=== PATIENT | female | born 1960 | race Caucasian/White ===

== ENCOUNTER → 2023-10-17 06:53 | Outpatient (REF) | payer BC, SELFPAY | LOC: MRI 06:53 | PROVIDERS: ATTENDING PHYSICIAN Orthopaedic Surgery; FAMILY PHYSICIAN Nurse Practitioner Family | DX: G89.29 Other chronic pain (principal); M54.41 Lumbago with sciatica, right side | CPT/HCPCS: 72148 ==

== ENCOUNTER → 2023-12-08 07:11 | Outpatient (REF) | payer BC, SELFPAY | LOC: RCS 07:11 | PROVIDERS: ATTENDING PHYSICIAN Internal Medicine Cardiovascular Disease; FAMILY PHYSICIAN Nurse Practitioner Family | DX: R06.02 Shortness of breath (principal); R07.89 Other chest pain | CPT/HCPCS: 93306 ==

== ENCOUNTER → 2024-04-20 08:25 | Outpatient (REF) | payer BC, SELFPAY | LOC: RCS 08:25 | PROVIDERS: ATTENDING PHYSICIAN Internal Medicine Cardiovascular Disease; FAMILY PHYSICIAN Nurse Practitioner Family | DX: R06.02 Shortness of breath (principal); R07.89 Other chest pain | CPT/HCPCS: 93017; 93350 ==

== ENCOUNTER → 2024-05-11 07:12 | Outpatient (REF) | payer BC, SELFPAY ==
[2024-05-11 07:55] LABS: % Basophils 0.6 % (0-2); % Eosinophils 1.7 % (0-6); % Immature Granulocytes 0.5 % (0-0.5); % Lymphocytes 26.1 % (20.5-51.1); % Monocytes 9.1 % (1.7-9.3); Absolute Basophils 0.1 10^3/uL (0-0.2); Absolute Eosinophils 0.1 10^3/uL (0-0.7); Absolute Lymphocytes 2.1 10^3/uL (1.2-3.4); Absolute Monocytes 0.7 10^3/uL (0.1-0.6); Hematocrit 36.7 % (37.0-47.0); Hemoglobin 12.3 g/dL (12.0-16.0); Mean Corp Hgb Conc. 33.5 g/dL (33.0-37.0); Mean Corpuscular Hgb 29.1 pg (27.0-31.0); Mean Platelet Volume 9.9 fL (7.4-10.4); Nucleated Red Blood Cells % 0 %; Platelet Count 303 10^3/uL (130-400); Red Blood Cell Count 4.22 10^6/uL (4.20-5.40); Red Cell Dist. Width 14.2 % (11.5-14.5); White Blood Cell Count 8.1 10^3/uL (4.8-10.8)
[2024-05-11 08:16] LABS: ALT (SGPT) 20 U/L (0-35); AST (SGOT) 24 U/L (14-36); Albumin 4.4 g/dl (3.5-5.0); Alkaline Phosphatase 54 U/L (38-126); Blood Urea Nitrogen 25 mg/dl (7-17); Calcium 9.6 mg/dl (8.4-10.2); Carbon Dioxide 30 mmol/L (22-30); Chloride 104 mmol/L (98-107); Glucose 105 mg/dl (70-99); HDL Cholesterol 51 mg/dl; LDL Cholesterol, Calculated 109 mg/dl; Potassium 5.1 mmol/L (3.5-5.1); Sodium 144 mmol/L (135-145); Total Bilirubin 0.5 mg/dl (0.2-1.3); Total Cholesterol 186 mg/dl (50-199); Total Protein 7.4 g/dl (6.3-8.2); Triglyceride 133 mg/dl (10-149); Very Low Density Lipoprotein 26 mg/dl (0-30); eGFR > 60.00
[2024-05-11 08:46] LABS: TSH Reflex To Free T4 2.94 uIU/ml (0.47-4.68)
== END ==
LOC: REG 07:12
PROVIDERS: ATTENDING PHYSICIAN Family Medicine; REFERRING PHYSICIAN Internal Medicine Cardiovascular Disease
DX: Z00.00 Encounter for general adult medical examination without abnormal findings (principal)
CPT/HCPCS: 36415; 80053; 80061; 84443; 85025

== ENCOUNTER → 2024-05-21 16:44 | Outpatient (REF) | payer BC, SELFPAY ==
[2024-05-21 18:15] LABS: NT-proBNP 40.2 pg/ml
== END ==
LOC: REG 16:44
PROVIDERS: ATTENDING PHYSICIAN Physician Assistant Medical
DX: R60.0 Localized edema (principal)
CPT/HCPCS: 36415; 83880

== ENCOUNTER → 2024-06-04 16:48 | Outpatient (REF) | payer BC, SELFPAY | LOC: WDC 16:48 | PROVIDERS: ATTENDING PHYSICIAN Nurse Practitioner Family | DX: Z12.31 Encounter for screening mammogram for malignant neoplasm of breast (principal) | CPT/HCPCS: 77063; 77067 ==

== ENCOUNTER → 2024-06-29 06:19 | Day surgery (SDC) | payer BC, SELFPAY | LOC: GI 06:19 | PROVIDERS: ATTENDING PHYSICIAN Internal Medicine Gastroenterology | DX: Z12.11 Encounter for screening for malignant neoplasm of colon (principal); K63.89 Other specified diseases of intestine; K57.30 Diverticulosis of large intestine without perforation or abscess without bleeding; R12 Heartburn; K44.9 Diaphragmatic hernia without obstruction or gangrene; K25.9 Gastric ulcer, unspecified as acute or chronic, without hemorrhage or perforation; K31.89 Other diseases of stomach and duodenum; Z86.0100 Personal history of colon polyps, unspecified | CPT/HCPCS: 43235; G0105 ==